=== PATIENT | male | born 1960 | race Caucasian/White ===

== ENCOUNTER → 2016-09-20 | Outpatient (CLI) | payer MEDICARE, MEDICAID ==
[~2016-09-20] MED LIST: BISO10TA PO; CIPR500T89 PO; FENO134C PO; GASTROGRAFIN SOLUTION 30ML (Q9963) As Ordered ONE; ISOVUE-370 76% 100ML VIAL (Q9967) As Ordered ONE; JANU100T PO; LISI25TA OR; METF1000 PO; MORP4SYR IM; PERCOCET PO; TRIL135C PO; VICODIN OR; ZIAC10TA PO; [UNRECOGNIZED DRUG - CODE] PO; hctz PO
--- NOTE | 2016-09-20 10:06 | REP ---
CT abdomen pelvis without and with IV contrast, multiphase scanning: Scanning is initially performed without IV contrast of the abdomen, pelvis not included. This is followed by IV contrast enhanced scanning during the portal venous phase of enhancement from the diaphragms to the pubic symphysis including abdomen and pelvis. This is followed by scanning during the delayed equilibrium phase of enhancement include in the abdomen but not including the pelvis. Comparison is the prior study of 03/30/2016 without IV contrast. Numerous enlarged para esophageal retrocrural nodes are again noted in the visualized portion of the lower chest similar appearance to the prior study. The largest node in this area measures 18 mm short axis, similar to the prior study. Periportal and small bowel mesenteric lymphadenopathy is again identified. The largest node in this location today measures 4.7 centimeters (previously 3.0 cm). There is retroperitoneal adenopathy with the largest periaortic node measuring 20 mm short axis (17 mm previously). No pelvic adenopathy is identified. This is unchanged. There is no ascites. No bowel distension. Liver and spleen appear normal size and homogeneous. The gallbladder, pancreas, adrenals are unremarkable. There is a 6 mm nonobstructive calculus in the lower pole left kidney, unchanged. There are bilateral renal cortical cysts measuring up to 2.6 cm. No renal masses are identified. No hydronephrosis. There is no bowel distension. Pelvis: The appendix is unremarkable. There is no pelvic adenopathy. The bladder is unremarkable. There are no lytic, blastic or destructive skeletal changes. There is an anterior Schmorl's node and a limbus vertebra at the anterior inferior margin of the T8 vertebral body, unchanged. There are Schmorl's nodes in the superior endplates of T11, T12 and L3, unchanged. Impression: There is abdominal adenopathy as described. The adenopathy is either similar size or some of the nodes are larger than previously. None of the nodes appear to have decreased in size. No pelvic adenopathy is identified, as previously. There is a nonobstructive left renal calculus, unchanged. Signed by Bjorn Ying MD 09/20/2016 09:57 A
--- NOTE | 2016-09-20 10:11 | REP ---
CT STUDY OF THE CHEST WITH IV CONTRAST: HISTORY: Restaging follicular non-Hodgkin lymphoma. Comparison chest CT study is from April 02, 2013. Comparison PET/CT is from May 04, 2016. CT CONTRAST DOSE: 100 mL of Isovue-[address] FINDINGS: Multiple mediastinal lymph nodes are again noted. Several of these contain calcifications. There is a new lymph node to the right of midline in the perivascular mediastinum anterior to the trachea measuring 1.5 x 1.7 cm. This corresponds to an area of hypermetabolic activity on the PET/CT May 04, 2016. Posterior to this is a right paratracheal lymph node which measures 1.4 cm in short-axis dimension. Previously, this lymph node measured 1.1 cm. Lymph nodes in the aorticopulmonary window region of the mediastinum are unchanged. Another right paratracheal lymph node has increased its short-axis dimension from 18 mm to 20 mm. Subcarinal adenopathy is again seen. The largest of these has a short axis dimension of 20 mm, previously 18 mm. Paraesophageal lymphadenopathy and retrocrural nodes are again seen. These are unchanged. There is a celiac axis lymph node with a short-axis dimension of 8 mm which previously measured 6 mm. A pericaval lymph node is seen with dimensions of 19 x 28 mm, previously 14 x 24 mm. There is a left periaortic lymph node just above the level of the left renal vascular pedicle which has increased since the PET/CT. Its dimensions are 13 x 31 mm. There are two small accessory splenules again noted. The spleen measures 12 cm in greatest diameter and is felt to be normal in size. No focal hepatic or splenic lesion is seen. No axillary or other extrathoracic adenopathy is seen. No bony destructive lesion is appreciated. IMPRESSION: Intrathoracic, retrocrural, and upper abdominal lymphadenopathy as above with multiple sites where lymph nodes have increased in size or new lymph nodes have developed since the April 02, 2013 prior study. Signed by Gopi Morales MD 09/20/2016 02:33 P
== END ==
LOC: M RAD 07:20
PROVIDERS: ATTEND Internal Medicine Medical Oncology
DX: R59.1 Generalized enlarged lymph nodes (principal); N20.0 Calculus of kidney
CPT/HCPCS: 71260; 74178; Q9963; Q9967

== ENCOUNTER → 2016-12-07 | Outpatient (CLI) | payer MEDICARE, MEDICAID ==
[~2016-12-07] MED LIST changes: -GASTROGRAFIN SOLUTION 30ML (Q9963) As Ordered ONE; -ISOVUE-370 76% 100ML VIAL (Q9967) As Ordered ONE; -TRIL135C PO; +TRIL135C6 PO
== END ==
LOC: M PLARAD 07:45
PROVIDERS: ATTEND Internal Medicine Medical Oncology
DX: C82.08 Follicular lymphoma grade I, lymph nodes of multiple sites (principal); R06.02 Shortness of breath; Z53.9 Procedure and treatment not carried out, unspecified reason

== ENCOUNTER → 2016-12-14 | Outpatient (CLI) | payer MEDICARE, MEDICAID ==
--- NOTE | 2016-12-19 10:52 | REP ---
PET/CT: HISTORY: Restaging follicular lymphoma. Mesenteric lymphadenopathy, reevaluate chest and mediastinal lymphadenopathy. New shortness of breath. Rule out progression in the chest and abdomen. The patient also has a history of sarcoidosis. COMPARISONS: Comparison PET/CT study is from May 04, 2016. Comparison CT exams of the chest abdomen and pelvis are reviewed from September 20, 2016. TECHNIQUE: 72 minutes following the intravenous injection of a 8.6 mCi dose of F-18 FDG, three-dimensional PET scintigraphy is acquired from the skull base to the proximal thighs. Triplanar noncontrast CT scanning is acquired through the same anatomic range for attenuation correction, and image registration with scan parameters optimized to minimize radiation exposure to the patient. PET scintigraphy and CT datasets were fused and displayed on a workstation with multiplanar and projection display capability. PET/CT FINDINGS: There is PET/CT evidence of significant progression of suspicious hypermetabolic lymphadenopathy above and below the diaphragm. The previously noted mesenteric focus of hypermetabolic uptake is larger today, 8.8 cm x 7.6 cm compared to 3.6 cm on previous PET/CT study. This lesion appears more extensive than on the September 20, 2016 CT. There is multifocal progressive hypermetabolic uptake in the left periaortic, aortocaval, small bowel mesenteric, celiac axis lymph nodes in the abdomen. Multiple new hypermetabolic josette foci are seen. Maximum standard uptake value in the large mesenteric focus is 11.1. The periaortic, aortocaval, and celiac axis adenopathy has hypermetabolic uptake with SUV values ranging from 5.0 to 9.9. There is bulky new hypermetabolic bilateral retrocrural lymphadenopathy. Maximum standard uptake value in these enlarged lymph nodes is 7.6. These nodes have enlarged since the recent September 20, 2016 study. Multiple hypermetabolic josette foci are again seen in the chest. The progression is less dramatic here. There is a left mediastinal hypermetabolic josette focus which appears larger. Maximum standard uptake value is 8.0. This node has increased in size from 2.1 cm in April to 3.0 cm today. There are granulomatous lymph node calcifications again seen scattered in the mediastinum. There are new normal-size hypermetabolic josette foci in the supraclavicular soft tissues bilaterally at the thoracic inlet. The largest of these measures 1.1 cm. This has maximum standard uptake value of 5.3. IMPRESSION: PET scintigraphy imaging evidence of progressive hypermetabolic lymphadenopathy above and below the diaphragm as described above. Signed by Gopi Morales MD 12/19/2016 11:01 A
== END ==
LOC: M PLARAD 14:00
PROVIDERS: ATTEND Internal Medicine Medical Oncology
DX: C82.13 Follicular lymphoma grade II, intra-abdominal lymph nodes (principal); R59.0 Localized enlarged lymph nodes
CPT/HCPCS: 78815; A9552

== ENCOUNTER → 2017-01-04 | Outpatient (CLI) | payer MEDICARE, MEDICAID ==
[~2017-01-04] MED LIST changes: +ALLO15TA PO; +ATOR1TAB21 PO; +BISO10TA6 PO; +ESOM1CAP5 PO; +FLOM5CAP PO; +WELC625T PO
== END ==
LOC: M SMT 09:38
PROVIDERS: ATTEND Internal Medicine Pulmonary Disease
DX: D86.1 Sarcoidosis of lymph nodes (principal); R59.0 Localized enlarged lymph nodes

== ENCOUNTER → 2017-01-06 | Outpatient (CLI) | payer MEDICARE, MEDICAID ==
--- NOTE | 2017-01-06 15:12 | REP ---
Clinical: Sarcoidosis. Comparison: 09/20/2016. Findings: Markedly increased mediastinal and hilar adenopathy is appreciated. As example, the prevascular lymph node just above the level of the aortic arch currently measures 3.0 x 2.1 cm (image 21), and previously measured 1.9 x 1.1 cm. Significantly enlarged lymph nodes extending through the diaphragmatic hiatus measure greater than 5.1 x 2.6 cm and previously measured 3.0 x 1.2 cm. Further adenopathy in the visualized upper abdomen is also appreciated and appears to be increased from prior examination. The bilateral lung briggs are relatively well aerated with minimal bibasilar fibro atelectatic changes appreciated a small focus of non solid density in the left lower lobe (image 63) measures 1.1 cm previously measuring approximately 0.7 cm. No focal consolidation, pleural effusion/reaction or pneumothorax. Tracheobronchial tree is patent. The heart is relatively normal in size and without pericardial effusion. Thoracic aorta is without aneurysm. Surrounding musculoskeletal structures are intact. Impression: 1. Increased adenopathy within the mediastinum and most notably in the posterior mediastinum extending through the diaphragmatic hiatus. 2. Small area of non solid density in the left lower lobe minimally increased from prior examination. Signed by Satya Adamson MD 01/06/2017 03:04 P
== END ==
LOC: M RAD 14:25
PROVIDERS: ATTEND Internal Medicine Pulmonary Disease
DX: D86.1 Sarcoidosis of lymph nodes (principal)

== ENCOUNTER → 2017-01-16 | Day surgery (SDC) | payer MEDICARE, MEDICAID ==
[~2017-01-16] VITALS: Ht 167.6 cm; Wt 106.1 kg
[~2017-01-16] MED LIST changes: +EPINEPHrine 1MG/10ML SYRINGE 1.5IN As Ordered ONE; +LIDOCAINE 1% SDV INJ 30 ML VIAL As Ordered ONE; +LIDOCAINE 2% INJ 100 MG/5 ML SDV (FOR ANES.) As Ordered ONE; +LIDOCAINE 4% TOPICAL SOLN 50 ML BTL As Ordered ONE; +LR 1,000 ML IV ONE; +LR 1,000 ML IV SCH; +MEPERIDINE INJ 25 MG/ML VIAL (J2175) IV PRN; +MIDAZOLAM INJ 2 MG/2 ML VIAL (J2250) As Ordered ONE; +ONDANSETRON 4MG/2ML VIAL (J2405) As Ordered ONE; +ONDANSETRON 4MG/2ML VIAL (J2405) IV PRN; +PERCOCET 5MG/325MG TAB PO PRN; +PHENYLephrine HCL 500 MCG/5 ML (100MCG/ML) SYRINGE (J2370) As Ordered ONE; +PROPOFOL 200 MG/20 ML VIAL As Ordered ONE; +ROCURONIUM BROMIDE 50 MG/5 ML VIAL As Ordered ONE; +THROMBIN SOLN 20,000 UNITS KIT As Ordered ONE; +fentaNYL 100 MCG/2 ML INJECTION (J3010) As Ordered ONE; +fentaNYL 100 MCG/2 ML INJECTION (J3010) IV PRN
[2017-01-16] MEDS: LIDOCAINE VISCOUS 2% SOLN 15ML UDC As Ordered ONE ×2 (07:12→08:00)
--- NOTE | 2017-01-16 08:47 | REP ---
Portable chest x-ray: Single view. History: Postop bronchoscopy. Findings: The lungs are exposed at a relatively low level of inspiration. There is somewhat linear parenchymal opacity in the right upper lobe in a paramediastinal distribution. There is some fissural thickening in the minor fissure versus right mid lung zone plate-like atelectasis. No free pleural effusion is seen. No evidence of pneumothorax noted. Impression: Somewhat linear parenchymal opacities in the right upper lobe and right mid lobe distribution. No pneumothorax seen. Signed by Gopi Morales MD 01/16/2017 12:57 P
--- NOTE | 2017-01-16 08:48 | RO ---
DATE OF PROCEDURE: 01/16/2017 PREOPERATIVE DIAGNOSIS: Mediastinal adenopathy. POSTOPERATIVE DIAGNOSIS: Mediastinal adenopathy. PROCEDURE: Bronchoscopy with endobronchial ultrasound procedure. SURGEON: Dr. Schwartz PROCESS EQUIPMENT OPERATOR: None. ANESTHESIA: General. SPECIMENS OBTAINED: Fine needle aspiration (FNA) of the subcarinal node and FNA of a right pretracheal node in between 10 and 4R locations. FINDINGS: Normal airways with minimal amounts of mucus. DESCRIPTION OF PROCEDURE: Informed consent was reviewed with the patient in the preoperative area. He was then brought back to the operating room (OR) #8. General anesthesia was initiated with an 8.5 endotracheal tube. After adequate sedation, the patient was handed over to ms. Cetacaine spray was used to anesthetize and lubricate the endotracheal tube and bronchoscope. The Q180 bronchoscope was then inserted through the endotracheal tube. The trachea was midline. Shalini was surprisingly sharp. Right and left mainstem bronchus was normal except for minimal amounts of mucus on the right. There was some anatomic variation of the right upper lobe without any endobronchial lesions in RB 1 through 3. The bronchus intermedius was normal. RB 4 through 10 was normal without endobronchial lesions. The left mainstem bronchus was normal. LB 1 through 10 was normal without endobronchial lesions. The Q180 bronchoscope was removed and the endobronchial ultrasound was inserted. The subcarinal area was viewed and pictures were taken. There was a large, at least 3.5 to 4 cm subcarinal node. Close to 15 samples were taken of the subcarinal node, both for flow cytometry and for cell block. After this, the pretracheal area was viewed. There was a 1 cm node in the low 4R area. Multiple samples were taken of this lymph node. After all samples were taken, the airway was suctioned of heme. The endobronchial ultrasound was removed. There was no evidence of complications. The Q180, bronchoscope was reintroduced. All airways were suctioned to ensure hemostasis. There were no observed complications. A postprocedure chest x-ray is pending. The patient was extubated and sent to the recovery room.
[2017-01-16 10:25] VITALS: BP 140/88
== END | disposition home or self-care (01) ==
LOC: M SDC 06:04
PROVIDERS: ATTEND Internal Medicine Pulmonary Disease
DX: R59.0 Localized enlarged lymph nodes (principal); D86.1 Sarcoidosis of lymph nodes; Z85.72 Personal history of non-Hodgkin lymphomas; N20.0 Calculus of kidney; E11.9 Type 2 diabetes mellitus without complications; I10 Essential (primary) hypertension; E78.00 Pure hypercholesterolemia, unspecified; G47.9 Sleep disorder, unspecified; K21.9 Gastro-esophageal reflux disease without esophagitis; Z79.899 Other long term (current) drug therapy; Z79.84 Long term (current) use of oral hypoglycemic drugs
CPT/HCPCS: 31652; 71010; 88172; 88173; 88305; 88313; J2250; J2370; J2405; J3010

== ENCOUNTER → 2017-08-03 | Outpatient (CLI) | payer MEDICARE, MEDICAID ==
[~2017-08-03] MED LIST changes: +CIPR-249 PO; -CIPR500T89 PO; +COLE625TAB PO; -EPINEPHrine 1MG/10ML SYRINGE 1.5IN As Ordered ONE; +GASTROGRAFIN SOLUTION 30ML (Q9963) As Ordered ONE; +ISOVUE-370 76% 100ML VIAL (Q9967) As Ordered ONE; -LIDOCAINE 1% SDV INJ 30 ML VIAL As Ordered ONE; -LIDOCAINE 2% INJ 100 MG/5 ML SDV (FOR ANES.) As Ordered ONE; -LIDOCAINE 4% TOPICAL SOLN 50 ML BTL As Ordered ONE; -LR 1,000 ML IV ONE; -LR 1,000 ML IV SCH; -MEPERIDINE INJ 25 MG/ML VIAL (J2175) IV PRN; -METF1000 PO; +METF10004 PO; -MIDAZOLAM INJ 2 MG/2 ML VIAL (J2250) As Ordered ONE; -ONDANSETRON 4MG/2ML VIAL (J2405) As Ordered ONE; -ONDANSETRON 4MG/2ML VIAL (J2405) IV PRN; -PERCOCET 5MG/325MG TAB PO PRN; -PHENYLephrine HCL 500 MCG/5 ML (100MCG/ML) SYRINGE (J2370) As Ordered ONE; -PROPOFOL 200 MG/20 ML VIAL As Ordered ONE; -ROCURONIUM BROMIDE 50 MG/5 ML VIAL As Ordered ONE; -THROMBIN SOLN 20,000 UNITS KIT As Ordered ONE; +WELC3.75 PO; -WELC625T PO; -[UNRECOGNIZED DRUG - CODE] PO; -fentaNYL 100 MCG/2 ML INJECTION (J3010) As Ordered ONE; -fentaNYL 100 MCG/2 ML INJECTION (J3010) IV PRN
--- NOTE | 2017-08-03 11:57 | REP ---
CT BRAIN WITHOUT AND WITH IV CONTRAST: HISTORY: Headache. Question metastasis. Non-Hodgkin lymphoma. Question progression. No comparison study. CT CONTRAST DOSE: 100 mL of intravenous Isovue [address] FINDINGS: Bone window settings demonstrate an intact bony calvarium. No bony destructive lesion is seen. No intraorbital abnormality is seen. The visualized paranasal sinuses are clear. On soft tissue window settings, lateral, third, and fourth ventricles are normal in size and position. Carter/white differentiation pattern is normal above and below the tentorium. There is no evidence of intracranial mass on pre- or postcontrast images. Postcontrast images show enhancement of normal vessels. No abnormal contrast enhancement is appreciated. No infarct, extra-axial fluid collection or hemorrhage is seen. IMPRESSION: Negative CT study of the brain with pre- and postcontrast imaging. There is no CT evidence of intracranial metastatic disease or other acute lesion. Signed by Gopi Moralse MD 08/03/2017 03:58 P
--- NOTE | 2017-08-03 12:14 | REP ---
CT STUDY OF THE CHEST WITH IV CONTRAST: HISTORY: Non-Hodgkin's lymphoma. Known sarcoidosis. Question lymphoma progression. Comparison CT study most recently is from January 06, 2017. Comparison is made with images from PET/C T June 20, 2017. The most recent comparison CT study with IV contrast is from September 20, 2016. CT CONTRAST DOSE: 100 mL of intravenous Isovue 370. CT FINDINGS: There is a granulomatous calcification in the right perihilar region and another in the right upper lobe unchanged. There is a third in the superior segment of the left lower lobe unchanged. There is a stable noncalcified somewhat nodular opacity in the left base unchanged from the September 2016 study. No new pulmonary nodule or infiltrate is seen. Minimal pleuroparenchymal fibrosis is noted. There is fairly bulky mediastinal lymphadenopathy. There are para-aortic posterior mediastinal lymph nodes which are substantially larger than September 2006 study but essentially unchanged from the January 06, 2017 study. There are stable retrocrural lymph nodes as well unchanged from the January 06, 2017 exam. The largest of these posterior periaortic and posterior mediastinal enlarged lymph nodes measures 2.4 cm in short axis x 5.5 cm in long axis dimension. Previously this lymph node was measured as 2.6 x 5.1 cm. It is not felt to have changed. No new adenopathy is seen in the chest. No bony destructive lesion is seen. There are degenerative disc changes in the thoracic spine. There appears to be a subtle low density area in the posterior aspect the right thyroid lobe 1.5 cm in diameter consistent with a right thyroid nodule. This is unchanged. IMPRESSION: Stable fairly bulky mediastinal lymphadenopathy unchanged from most recent prior chest CT of January 06, 2017. As previously noted, this has progressed in the interval since the September, prior study. Signed by Gopi Morales MD 08/03/2017 03:58 P
--- NOTE | 2017-08-03 12:24 | REP ---
CT ABDOMEN AND PELVIS WITHOUT AND WITH IV CONTRAST: With oral contrast. HISTORY: Non-Hodgkin's lymphoma. History of sarcoid. Adenopathy. Question progression. COMPARISON CT STUDY: Images from PET/CT June 20, 2017. Most recent comparison abdomen CT is from September 20, 2016. CT CONTRAST DOSE: 100 mL of intravenous Isovue [address] FINDINGS: No adrenal lesion is seen. No focal hepatic lesion is seen on pre or postcontrast images. No splenic lesion is observed. The pancreas is unremarkable. There are two intrarenal calculi in the right kidney and there are three intrarenal calculi in the left kidney. No hydronephrosis is seen on either side. There are bilateral small renal cortical cysts. The largest of these is in the upper pole on the left measuring 2.9 cm. No gallbladder abnormality is seen. There is a fairly extensive adenopathy in the abdomen including retrocrural, celiac axis, periaortic pericaval, portal, and small bowel mesenteric lymph node chains. There is also a left common iliac adenopathy. The adenopathy in virtually all of these lymph node chains has progressed since the September 20, 2016 study but there is no observable progression since the PET/CT study June 20, 2017. The largest area is a confluent small bowel mesenteric josette process measuring 7.6 x 7.7 cm in overall dimension. This represents a confluence of several lymph nodes. No new adenopathy is seen compared with the 06/20/2017 study. No pelvic or inguinal adenopathy is observed. IMPRESSION: Bulky retroperitoneal mesenteric retrocrural and periportal lymphadenopathy seen unchanged from the most recent PET/CT study June 20, 2017. The abdominal adenopathy is more pronounced when compared with the September 20, 2016 CT study. Signed by Gopi Morales MD 08/03/2017 03:58 P
== END ==
LOC: M RAD 09:32
PROVIDERS: ATTEND Internal Medicine Medical Oncology
DX: R59.9 Enlarged lymph nodes, unspecified (principal); Z85.72 Personal history of non-Hodgkin lymphomas
CPT/HCPCS: 70470; 71260; 74178; Q9963; Q9967

== ENCOUNTER → 2017-08-08 | Outpatient (REF) | payer MEDICARE, MEDICAID ==
[~2017-08-08] MED LIST changes: -GASTROGRAFIN SOLUTION 30ML (Q9963) As Ordered ONE; -ISOVUE-370 76% 100ML VIAL (Q9967) As Ordered ONE
[2017-08-08 13:56] LABS: INR 0.99
[2017-08-08 14:07] LABS: IMMUNOGLOBULIN M 33.9 MG/DL (40-230)
== END ==
LOC: M LAB REF 13:07
PROVIDERS: ATTEND Internal Medicine Medical Oncology
DX: C85.90 Non-Hodgkin lymphoma, unspecified, unspecified site (principal)

== ENCOUNTER → 2017-08-31 | Outpatient (CLI) | payer MEDICARE, MEDICAID ==
[~2017-08-31] MED LIST changes: +ACETAMINOPHEN 325 MG TAB As Ordered; -ALLO15TA PO; -ATOR1TAB21 PO; -BISO10TA PO; -BISO10TA6 PO; -CIPR-249 PO; -COLE625TAB PO; -ESOM1CAP5 PO; -FENO134C PO; -FLOM5CAP PO; -JANU100T PO; +LIDOCAINE 1% MDV 20ML VIAL As Ordered; -LISI25TA OR; -METF10004 PO; -MORP4SYR IM; -PERCOCET PO; -TRIL135C6 PO; -VICODIN OR; -WELC3.75 PO; -ZIAC10TA PO; -hctz PO
[2017-08-31 10:25] LABS: BEDSIDE GLUCOSE 159 MG/DL (70-105)
== END ==
LOC: M RADPRO 08:07
DX: C85.10 Unspecified B-cell lymphoma, unspecified site (principal); Z79.899 Other long term (current) drug therapy
CPT/HCPCS: 38505

== ENCOUNTER → 2017-12-23 | Outpatient (CLI) | payer MEDICARE, MEDICAID | LOC: M RAD 09:29 | DX: R10.9 Unspecified abdominal pain (principal); N20.0 Calculus of kidney; N28.1 Cyst of kidney, acquired; K57.30 Diverticulosis of large intestine without perforation or abscess without bleeding; R59.0 Localized enlarged lymph nodes | CPT/HCPCS: 74176 ==

== ENCOUNTER → 2018-04-03 | Outpatient (CLI) | payer MEDICARE, MEDICAID | LOC: M PLARAD 13:11 | DX: C82.13 Follicular lymphoma grade II, intra-abdominal lymph nodes (principal) | CPT/HCPCS: 78815 ==

== ENCOUNTER → 2018-10-02 | Outpatient (CLI) | payer MEDICARE, MEDICAID ==
[~2018-10-02] MED LIST changes: -ACETAMINOPHEN 325 MG TAB As Ordered; +ALLO15TA PO; +ATOR1TAB21 PO; +BASA100I SC; +BISO10TA PO; +BISO10TA6 PO; +CIPR-249 PO; +COLE625TAB PO; +ESOM1CAP5 PO; +FENO134C PO; +FLOM0.4C39 PO; +GASTROGRAFIN SOLUTION 30ML (Q9963) As Ordered ONE; +ISOVUE-370 76% 100ML VIAL (Q9967) As Ordered ONE; +JANU100T PO; -LIDOCAINE 1% MDV 20ML VIAL As Ordered; +LISI25TA OR; +METF10004 PO; +MORP4INJ5 IM; +NOVO1INJ4 SC; +PERCOCET PO; +TRIL135C6 PO; +VICODIN OR; +WELC3.75 PO; +ZIAC10TA PO; +ZYLO300T6 PO; +hctz PO
--- NOTE | 2018-10-02 12:50 | REP ---
CT NECK WITH CONTRAST: HISTORY: Non-Hodgkin's lymphoma. CONTRAST: Isovue 370, 100 mL. COMPARISON: 03/30/2013. Calcification is present in the left tonsil. This is secondary to previous inflammatory disease. A 10 mm left internal laryngocele is present. The george- and hypopharynx and subglottic trachea are normal in appearance. The salivary and thyroid glands are normal in size and density. Small lymph nodes less than 1 cm in size are present in the internal jugular chains, posterior triangles and submandibular areas. Atherosclerotic calcification is present at the right carotid bifurcation. Degenerative change is present in the cervical spine. The lung apices are clear. The visualized sinuses are clear. IMPRESSION: 1. There is no neck mass or adenopathy. 2. 10 mm left internal laryngocele. Electronically Signed by Sam Honeycutt MD 10/02/2018 12:51 P
--- NOTE | 2018-10-02 14:44 | REP ---
CT of the chest with IV contrast: Comparison is 08/03/2017. The There are multiple enlarged lymph nodes in the anterior medial mediastinum and in the right and left hamzah, not significantly changed in size. There are no enlarging nodes in these areas of these nodes contain calcifications, likely a consequence of therapy. There are multiple posterior mediastinal periaortic nodes many of which have decreased in size. No enlarging nodes are identified. There are retrocrural nodes that have decreased in size. There are no lung masses or nodules. There are no infiltrates or pleural effusions. There are no lytic, blastic or destructive skeletal changes. Impression: The known anterior middle mediastinal adenopathy is similar in size to the previous study, however, some of the nodes have slightly decreased in size. There are no enlarging nodes. The posterior mediastinal periaortic nodes have decreased in size. The previously identified nodule posteriorly in the right lobe of the thyroid has decreased in size. Electronically Signed by Bjorn Ying MD 10/02/2018 02:36 P
--- NOTE | 2018-10-02 14:55 | REP ---
CT of the abdomen pelvis with IV and oral contrast: Comparison is 2016. The retrocrural, celiac axis, periportal, periaortic, pericaval and small bowel mesenteric nodes, all decreased in size. No enlarging nodes are identified. No new adenopathy is identified. There is no ascites. The hepatic parenchyma, gallbladder, pancreas and spleen are unremarkable. The adrenals are unremarkable. The bilateral nonobstructive renal calculi are unchanged. The bilateral renal simple cysts are unchanged. The bowel is unremarkable. Pelvis: There is no ascites. The left common iliac adenopathy has decreased in size. There is no new adenopathy. The bladder is unremarkable. The pelvic bowel loops are unremarkable. Impression: The patient's known abdominal and pelvic adenopathy has all decreased in size. No enlarging nodes are identified. No new lymph nodes are identified Electronically Signed by Bjorn Ying MD 10/02/2018 02:47 P
== END ==
LOC: M RAD 10:53
PROVIDERS: ATTEND Nurse Practitioner Family
DX: C82.90 Follicular lymphoma, unspecified, unspecified site (principal)
CPT/HCPCS: 70491; 71260; 74178; Q9963; Q9967

== ENCOUNTER → 2019-05-07 | Outpatient (CLI) | payer MEDICAID, MEDICARE ==
[~2019-05-07] MED LIST changes: -ALLO15TA PO; +ALLO300T2 PO; -BISO10TA PO; +BISO10TA10 PO; +BISO10TA13 PO; -BISO10TA6 PO; +CELE1CAP9 PO; -GASTROGRAFIN SOLUTION 30ML (Q9963) As Ordered ONE; -ISOVUE-370 76% 100ML VIAL (Q9967) As Ordered ONE; +LISI2.5T7 OR; -LISI25TA OR
[2019-05-07 11:28] LABS: BASO # 0.1 10^3/uL (0.0-0.2); BASO % 1.4 % (0.0-1.0); EOS # 0.1 10^3/uL (0.0-0.5); EOS % 1.8 % (0.0-3.0); HEMATOCRIT 38.3 % (42.0-52.0); HEMOGLOBIN 12.4 g/dl (13.5-17.5); LYMPH # 0.7 10^3/uL (1.5-5.0); LYMPH % 9.2 % (24.0-44.0); MEAN CORPUSCULAR HGB CONC 32.4 g/dl (32.0-36.5); MEAN CORPUSCULAR VOLUME 92.5 fl (80.0-96.0); MONO # 0.8 10^3/uL (0.0-0.8); MONO % 10.4 % (0.0-5.0); NEUTROPHILS # 5.5 10^3/uL (1.5-8.5); NEUTROPHILS % 76.8 % (36.0-66.0); PLATELET COUNT, AUTOMATED 231 10^3/uL (150-450); RED BLOOD COUNT 4.14 10^6/uL (4.30-6.10); WHITE BLOOD COUNT 7.2 10^3/uL (4.0-10.0)
[2019-05-07 12:06] LABS: ALBUMIN 3.5 GM/DL (3.2-5.2); HEMOGLOBIN A1c 8.6 %; PERCENT SATURATION 11.9 % (19.7-50.0); THYROID STIMULATING HORMONE 2.67 uIU/ML (0.358-3.740)
== END ==
LOC: M LAB 09:53
PROVIDERS: ATTEND Orthopaedic Surgery
DX: Z01.818 Encounter for other preprocedural examination (principal); M17.12 Unilateral primary osteoarthritis, left knee; R53.1 Weakness; Z86.39 Personal history of other endocrine, nutritional and metabolic disease

== ENCOUNTER → 2020-02-25 | Outpatient (CLI) | payer MEDICARE, BC, MEDICAID ==
[~2020-02-25] MED LIST changes: -BISO10TA10 PO; +BISO10TA14 PO; +OLME5TAB PO
--- NOTE | 2020-02-26 10:13 | REP ---
REASON: Followup lymphoma. Prior CT/PET 04/03/2018 was reviewed. That is the latest prior exam for comparison. The latest prior CT examination of the chest, abdomen and pelvis to review is 10/02/2018. The prior PET/CT showed no abnormal hypermetabolic activity. After the intravenous administration of 9 millicuries of FDG, triplane whole body PET/CT was performed from the skull base to the mid thigh. There is no abnormal hypermetabolic activity seen in the neck, chest, abdomen, or pelvis. IMPRESSION: Negative CT/PET. No significant change from the prior exam. Electronically Signed by Robert Ramires DO 02/26/2020 12:54 P
== END ==
LOC: M PLARAD 11:24
PROVIDERS: ATTEND Internal Medicine Medical Oncology
DX: C82 Follicular lymphoma (principal)
CPT/HCPCS: 78815; A9552

== ENCOUNTER → 2023-02-08 | Outpatient (CLI) | payer OTHER, MEDICAID ==
[~2023-02-08] MED LIST changes: +ALLO200T PO; +COLE3.755 PO; +COLE625T17 PO; -COLE625TAB PO; -FENO134C PO; +FENO134C20 PO; +GASTROGRAFIN SOLUTION 30ML ONE; +ISOVUE-370 76% 100ML VIAL ONE; +OLME20TA2 PO; -OLME5TAB PO; +OLME5TAB24 PO; -WELC3.75 PO
== END ==
LOC: M PLAIMG 08:56
PROVIDERS: ATTEND Internal Medicine Medical Oncology
DX: C82.90 Follicular lymphoma, unspecified, unspecified site (principal)
CPT/HCPCS: 71260; 74177; Q9963; Q9967